=== PATIENT | male | born 1985 | race Caucasian/White ===

== ENCOUNTER 2019-04-08 21:47 | Emergency (ER) | payer BC, OTHER ==
[~2019-04-08] VITALS: Ht 177.8 cm; Wt 75.3 kg
[2019-04-08 22:01] VITALS: BP 122/65
== END 2019-04-08 23:06 | disposition home or self-care (01) ==
LOC: ER 21:47
DX: J06.9 Acute upper respiratory infection, unspecified (principal); F10.10 Alcohol abuse, uncomplicated; F17.200 Nicotine dependence, unspecified, uncomplicated; Y90.9 Presence of alcohol in blood, level not specified
CPT/HCPCS: 71045-TC